=== PATIENT | female | born 1975 | race Caucasian/White ===

== ENCOUNTER → 2016-11-27 | Outpatient (CLI) | payer BC ==
[~2016-11-27] MED LIST: SYMIN/8045 INH
--- NOTE | 2016-11-27 12:26 | MAMMOGRAPHY REPORT ---
BILATERAL DIGITAL DIAGNOSTIC MAMMOGRAM TOMOSYNTHESIS WITH CAD AND TARGETED LEFT ULTRASOUND: 7 CLINICAL HISTORY: The patient reports a palpable lump in her left breast, which is unchanged since i t was evaluated last year but does seem more tender and uncomfortable. She had a fine-needle aspira tion of the lump which yielded no evidence of malignancy. TECHNIQUE: Breast tomosynthesis in addition to standard 2D mammography was performed. Current study was also evaluated with a Computer Aided Detection (CAD) system. Bilateral CC and MLO 2-D and subha synthesis images were obtained. COMPARISON: Comparison is made to exams dated: 11/27/2016 mammogram, 11/01/2015 ultrasound, 11/01/2015 mammogram, 07/16/2013 ultrasound, and 07/16/2013 mammogram - [facility]. BREAST COMPOSITION: The tissue of both breasts is heterogeneously dense, which may obscure small ma sses. FINDINGS: There are no suspicious masses, calcifications, or areas of architectural distortion note d in either breast. There has been no significant interval change compared to prior exams. A trian gle marker andino the site of the palpable lump in the left upper outer quadrant/axillary region; no suspicious masses or other suspicious mammographic abnormalities are noted in this region. Targeted ultrasound was performed of the area of the palpable lump pointed out by the patient, in th e left axillary region. Sonographically normal tissue is seen in this region, predominantly fibrogl andular tissue, without evidence of a suspicious mass or other suspicious sonographic abnormality. IMPRESSION: ACR BI-RADS CATEGORY 2: BENIGN, TARGETED ULTRASOUND ACR BI-RADS CATEGORY 2: BENIGN No suspicious mammographic or sonographic abnormality at the site of the palpable left axillary lump . There is no mammographic evidence of malignancy in either breast. Recommend clinical follow-up f or the left axillary lump; the patient reports she is seeing a surgeon at [facility] in the near future for the lump. Additionally, a 1 year screening mammogram is recommended. The patient has been verbally notified of the results. Approximately 10% of breast cancers are not detected with mammography. A negative mammographic repor t should not delay biopsy if a clinically suggestive mass is present. Lissette Urrutia M.D. ah/:11/27/2016 11:54:06 History Tutor: Briana KELLY(R)(M), [facility] letter sent: Normal 1/2 BI-RADS Code: ACR BI-RADS Category 2: Benign Ultrasound BI-RADS: ACR BI-RADS Category 2: Benign
== END | disposition home or self-care (01) ==
LOC: C.MAMM 11:18
PROVIDERS: ATTEND Internal Medicine
DX: N63 Unspecified lump in breast (principal)

== ENCOUNTER → 2016-12-13 | Outpatient (CLI) | payer BC ==
[2016-12-13 09:46] LABS: BASO % 0.4 %; BASO ABS # 0.02 K/uL (0-0.2); COMPLETE YES; EOS % 4.3 %; HEMATOCRIT 40.8 % (37-47); LYMPH % 41.3 %; LYMPH ABS # 1.94 K/uL (1.2-3.4); MEAN CELL VOLUME 91.1 fL (80-100); MEAN CORPUSCULAR HEMOGLOBIN 31.3 pg (25-34); MEAN CORPUSCULAR HGB CONC 34.3 g/dl (32-36); MEAN PLATELET VOLUME 10.1 fL (7.4-10.4); PLATELET COUNT 228 K/uL (130-400); RED BLOOD COUNT 4.48 M/uL (4.2-5.4)
[2016-12-13 10:05] LABS: ALB/GLOB RATIO 1.3 (0.9-2); ALT/SGPT 38 U/L (12-78); AST/SGOT 35 U/L (15-37); BLOOD UREA NITROGEN 12 mg/dl (7-18); CARBON DIOXIDE 29 mmol/L (21-32); CHLORIDE 105 mmol/L (98-107); GLUCOSE 78 mg/dl (70-99); POTASSIUM 4.2 mmol/L (3.5-5.1); SODIUM 140 mmol/L (136-145)
[2016-12-13 10:15] LABS: ALKALINE PHOSPHATASE 50 U/L (45-117); CHOLESTEROL 200 mg/dl (0-200); CHOLESTEROL/HDL RATIO 1.9; HDL CHOLESTEROL 107 mg/dl; LDL CHOLESTEROL CALCULATED 78 mg/dl; TRIGLYCERIDES 76 mg/dl (0-150); VERY LOW DENSITY LIPOPROT CALC 15 mg/dl
== END | disposition home or self-care (01) ==
LOC: C.LAB1850 07:18
PROVIDERS: ATTEND Internal Medicine
DX: Z13.1 Encounter for screening for diabetes mellitus (principal)

== ENCOUNTER 2017-04-01 10:08 | Emergency (ER) | payer BC ==
[~2017-04-01] VITALS: Ht 160 cm; Wt 69.9 kg
[2017-04-01 10:13] VITALS: TEMP 36.7; Ht 160 cm; Wt 69.9 kg
[2017-04-01] MEDS ORDERED: LIDO/EPINEPHRINE/SOD BICARB 20 ML VIAL INFIL ONE (10:50)
[2017-04-01] MEDS ORDERED: SYMIN/8045 INH (10:54)
[2017-04-01] MEDS ORDERED: DIPHTHERIA/TETANUS/PERTUSSIS 0.5 ML SYR/VIAL IM. ONE (11:00)
[2017-04-01] MEDS ORDERED: XYLOCAINE 1%/SOD BICARB 20 ML VIAL INFIL ONE (11:00)
--- NOTE | 2017-04-01 11:23 | EMERGENCY ROOM VISIT NOTE ---
ED Visit Note First contact with patient: 10:20 CHIEF COMPLAINT: Right index finger laceration HISTORY OF PRESENT ILLNESS: This 41-year-old female patient cut the right index finger on a lamp shade. He she states the bleeding has stopped. The patient denies anytingling of the finger. The patient is unsure of her tetanus status. REVIEW OF SYSTEMS: 6 system review was performed and was negative unless stated otherwise in history of present illness. PMH: The patient is healthy; there is no significant medical or surgical history. SOCIAL HISTORY: Patient lives with her . Non-smoker, occasional alcohol use. PHYSICAL EXAM: Vital Signs: Were reviewed Reviewed Nurse's notes. GENERAL: 41- year-old white female appears in no acute distress. MENTAL Status: Alert and oriented 3. RIGHT INDEX FINGER: There is a 5 mm cm long laceration on the palmar aspect of the distal phalanx .the edges are minimally apart with traction. There is no foreign material in the wound and it looks clean. There is no bleeding. No deep structures such as tendons or nerves are seen in the base of the wound. Extension of the finger is full and strong. EMERGENCY DEPARTMENT COURSE: The patient was evaluated. The patient was given Adacel. PROCEDURE:Wound Repair: Complexity: Basic. Verbal consent was obtained after the risks and benefits were explained, including but not limited to bleeding, scarring, infection, pain, and bone/joint /nerve damage. The skin was prepped with betadine and a sterile field set. The wound was anesthetized with 1.0 ml of 1% buffered lidocaine. With direct pressure the bleeding subsided. Copious irrigation was performed using sterile saline. The wound was explored for foreign bodies and none found. Debridement was not performed. The wound edges were approximated using 5-0 Ethilon with 1 simple interrupted sutures. Hemostasis and excellent approximation was achieved. Antibacterial ointment and a sterile dressing applied. Detailed wound care instructions and signs and symptoms of infection reviewed with the patient. No complications and the patient tolerated the procedure well. DIAGNOSIS: 5 mm right index finger laceration DISCHARGE INSTRUCTIONS & TREATMENT: Keep wound clean and dry. No water on the area for 12-24 hrs then no soaking until sutures removed. Do not allow any crusting or dried blood to accumulate on sutures. If this occurs, use a 1:1 solution of hydrogen peroxide/water on a Q-tip to clean the wound. Use an antibiotic ointment for 3-4 days, then let wound dry. Suture removal in 7 days. Follow up sooner for any signs of infection (increasing redness, swelling , drainage). Ice and elevate for swelling and pain. Tylenol 650 mg every 6 hrs for pain. Keep covered when in sun until sutures removed then SPF 50 or higher for one year. Vitamin E oil if desired two weeks after suture removal for reduction of scar. Current/Historical Medications Scheduled Budesonide/Formoterol Fumarate (Symbicort 80/4.5 Inhaler), 2 PUFFS INH BID Allergies Coded Allergies: No Known Allergies (Unverified , 04/01/17) Vital Signs Date Time Temp Pulse Resp B/P (MAP) Pulse Ox O2 Delivery O2 Flow Rate FiO2 04/01/17 10:13 36.7 76 17 140/97 100 Room Air Medications Administered Medications (Trade) Dose Ordered Sig/Nguyen Route Start Time Stop Time Status Last Admin Dose Admin Diphtheria/ Pertussis/Tetanus Vacc (Adacel Inj) 0.5 ml ONCE ONCE IM. 04/01/17 11:00 04/01/17 11:01 DC 04/01/17 11:01 0.5 ML Lidocaine HCl (Buffered Lidocaine 1% Inj) 20 ml NOW ONCE INFIL 04/01/17 11:00 04/01/17 11:01 DC 04/01/17 10:59 20 ML Departure Information Referrals Pro,Claus Cervantes M.D. (PCP) Patient Instructions [facility]
[2017-04-01 11:30] VITALS: BP 126/79; PULSE 56; O2SAT 98
== END 2017-04-01 11:30 | disposition home or self-care (01) ==
LOC: C.EDB 10:09 → C.EDA 11:30
DX: S61.210A Laceration without foreign body of right index finger without damage to nail, initial encounter (principal); W45.8XXA Other foreign body or object entering through skin, initial encounter; Z23 Encounter for immunization

== ENCOUNTER → 2017-06-26 | Outpatient (CLI) | payer BC ==
[2017-06-26 15:35] LABS: BASO % 0.3 %; BASO ABS # 0.02 K/uL (0-0.2); COMPLETE YES; EOS % 1.2 %; HEMATOCRIT 39.7 % (37-47); IG% 0.3 %; LYMPH % 30.8 %; LYMPH ABS # 2.26 K/uL (1.2-3.4); MEAN CELL VOLUME 94.3 fL (80-100); MEAN CORPUSCULAR HEMOGLOBIN 32.5 pg (25-34); MEAN CORPUSCULAR HGB CONC 34.5 g/dl (32-36); MEAN PLATELET VOLUME 9.8 fL (7.4-10.4); NEUT % 59.4 %; PLATELET COUNT 228 K/uL (130-400); RED BLOOD COUNT 4.21 M/uL (4.2-5.4); WHITE BLOOD COUNT 7.34 K/uL (4.8-10.8)
[2017-06-26 15:54] LABS: ALB/GLOB RATIO 1.2 (0.9-2); ALKALINE PHOSPHATASE 56 U/L (45-117); ALT/SGPT 34 U/L (12-78); AST/SGOT 32 U/L (15-37); BLOOD UREA NITROGEN 14 mg/dl (7-18); BUN/CREATININE RATIO 15.6 (10-20); CALCIUM 9.6 mg/dl (8.5-10.1); CARBON DIOXIDE 30 mmol/L (21-32); CHLORIDE 104 mmol/L (98-107); CREATININE 0.88 mg/dl (0.60-1.20); GLUCOSE 85 mg/dl (70-99); POTASSIUM 3.8 mmol/L (3.5-5.1); SODIUM 138 mmol/L (136-145)
[2017-06-26 15:58] LABS: THYROID STIMULATING HORMONE 0.922 uIu/ml (0.300-4.500)
[2017-06-29 17:32] LABS: EPSTEIN BARR VIR CAPSID IGG >750.00 U/ML
== END | disposition home or self-care (01) ==
LOC: C.LAB1850 13:53
PROVIDERS: ATTEND Nurse Practitioner Adult Health
DX: R53.83 Other fatigue (principal); J45.909 Unspecified asthma, uncomplicated; R59.1 Generalized enlarged lymph nodes